=== PATIENT | male | born 1960 | race Caucasian/White ===

== ENCOUNTER → 2016-07-20 | Outpatient (CLI) | payer OTHER | LOC: KOH-I 15:16 | DX: R07.9 Chest pain, unspecified (principal); R06.02 Shortness of breath | CPT/HCPCS: 71020 ==

== ENCOUNTER → 2016-07-29 | Outpatient (CLI) | payer OTHER | LOC: US 12:50 | DX: R49.0 Dysphonia (principal); R63.4 Abnormal weight loss; R93.8 Abnormal findings on diagnostic imaging of other specified body structures | CPT/HCPCS: 76536 ==

== ENCOUNTER → 2016-07-30 | Outpatient (CLI) | payer OTHER | LOC: HEART 5 07-28 11:00 | DX: R06.02 Shortness of breath (principal); R07.9 Chest pain, unspecified ==